=== PATIENT | male | born 1985 | race Caucasian/White ===

== ENCOUNTER 2019-07-05 14:17 | Emergency (ER) | payer MEDICAID ==
[~2019-07-05] VITALS: Ht 182.9 cm; Wt 75.7 kg
[~2019-07-05 14:17] MED LIST: AMOX500C2 PO
[2019-07-05] MEDS ORDERED: TETanus/Pertussis (Acell)/Diphther VAC/PF (Tdap-Adult) 0.5ml syringe IMVAC ONE (14:50)
--- NOTE | 2019-07-05 15:04 | NUR ---
OFF TO CT WITH RN AND LICENSED PSYCHOLOGIST
--- NOTE | 2019-07-05 15:46 | NUR ---
PT. BACK FROM CT
[2019-07-05 16:19] VITALS: BP 129/66
== END 2019-07-05 16:21 | disposition home or self-care (01) ==
LOC: ER 14:19
DX: S06.0X0A Concussion without loss of consciousness, initial encounter (principal); S80.212A Abrasion, left knee, initial encounter; S80.211A Abrasion, right knee, initial encounter; S50.812A Abrasion of left forearm, initial encounter; S60.415A Abrasion of left ring finger, initial encounter; S60.417A Abrasion of left little finger, initial encounter; F12.90 Cannabis use, unspecified, uncomplicated; Z79.2 Long term (current) use of antibiotics; W17.81XA Fall down embankment (hill), initial encounter; Y93.89 Activity, other specified; Y92.828 Other wilderness area as the place of occurrence of the external cause; Y99.8 Other external cause status
CPT/HCPCS: 70450; 72125; 90471; 90715; 99284